=== PATIENT | female | born 2000 | race Caucasian/White ===

== ENCOUNTER → 2022-02-06 18:50 | Observation (INO) ==
[2022-02-06 18:02] LABS: Bilirubin,Urine Negative (Negative); Blood,Urine Negative (Negative); Clarity,Urine Clear (Clear); Color,Urine Light-Yellow (Yellow); Glucose,Urine (UA) Normal (Normal); Ketones,Urine Negative (Negative); Leukocyte Esterase,Urine Negative (Negative); Nitrite,Urine Negative (Negative); PH,Urine 6.5 pH Units (5.0-8.0); Protein,Urine Negative (Neg-Trace); Urobilinogen,Urine Normal (Normal)
[~2022-02-06 18:50] MED LIST: Flu Vac QV 22-23 (6MOS UP)/PF 0.5 ML SYRINGE IM ONE
== END | disposition home or self-care (01) ==
LOC: 1NENULAB
PROVIDERS: ADMIT Advanced Practice Midwife; ATTEND Advanced Practice Midwife